=== PATIENT | male | born 2000 | race American Indian/Alaskan Native ===

== ENCOUNTER 2022-05-17 17:03 | Emergency (ER) | payer BC, MEDICAID ==
[2022-05-17 18:09] VITALS: BP 119/66
[2022-05-17] MEDS ORDERED: ONDANSETRON 4 MG/2 ML INJ IV ONE (22:00)
[2022-05-17] MEDS ORDERED: KETOROLAC 30 MG/1 ML INJ IV ONE (22:00)
[2022-05-17] MEDS ORDERED: FAMOTIDINE 20 MG/2 ML INJ IV ONE (22:00)
[2022-05-17] MEDS ORDERED: SODIUM CHLORIDE 0.9% 1000 ML 1,000 ML IV ONE (22:00)
[2022-05-17 22:42] LABS: Hematocrit 39.4 % (35.5-45.6); Hemoglobin 13.7 gm/dl (11.8-15.2); Mean Corpuscular HGB Conc 35 % (32-34); Mean Corpuscular Volume 89 fl (84-94); Platelet Count 165 K/mm3 (140-440); Red Blood Count 4.43 M/mm3 (3.65-5.03); Red Cell Distribution Width 13.5 % (13.2-15.2)
[2022-05-17 22:46] LABS: Mucus,Urine FEW /HPF
[2022-05-17 22:50] LABS: Bilirubin,Urine Negative (Negative); Blood,Urine Negative (Negative); Color,Urine Yellow (Yellow); Protein,Urine <15 mg/dL mg/dL (Negative); Urobilinogen,Urine < 2.0 mg/dL (<2.0)
[2022-05-17 22:57] LABS: Alanine Aminotransferase 42 units/L (7-56); Albumin 4.7 g/dL (3.9-5); BUN/Creatinine Ratio 9; Blood Urea Nitrogen 8 mg/dL (9-20); Calcium 9.3 mg/dL (8.4-10.2); Hemolysis Index 7
[2022-05-18 00:09] LABS: Band Neutrophils # (Manual) 0.3 K/mm3; Basophils % (Manual) 0 % (0.0-1.8); Eosinophils % (Manual) 0 % (0.0-4.3); Platelet Estimate Consistent w Auto; RBC Morphology Normal; Total Cells Counted 100
--- NOTE | 2022-05-18 00:43 | Emergency Department Report ---
ED N/V/D HPI - General Chief complaint: Upper Respiratory Infection Stated complaint: FEVER/BODY ACHE/VOMITTING/HEADACHE Source: patient Mode of arrival: Ambulatory Limitations: No Limitations - History of Present Illness Initial comments: Patient is a 21-year-old -[place] male with no past medical history who presents to the ED with complaint of acute onset persistent nausea and vomiting, diffuse body aches and pains,, low back pain, and mild dry cough for the last 3 days, worse in the last 2 days. Patient also complains of subjective chills and fever with generalized weakness and fatigue. Patient states that he has not been able to eat anything due to intractable nausea and vomiting for the last 12 hours. Patient denies dizziness, syncope, chest pain, shortness of breath, diarrhea, dysuria, urinary frequency and urgency, abdominal pain, sore throat or headache. MD complaint: nausea, vomiting, other (diffuse body aches and pain, low back pain) -: Sudden, days(s) (3) Description of Vomiting: food contents, watery, bilious Associated Abdominal Pain: No Location: diffuse Radiation: none Severity: severe Pain Scale: 7 Quality: cramping, aching, sharp Consistency: constant Improves with: none Worsens with: none Context: sick contacts Associated Symptoms: denies other symptoms, myalgias, cough, fever/chills, headaches, loss of appetite, malaise, nausea/vomiting, weakness. denies: chest pain, diaphoresis, rash, dysuria, shortness of breath, syncope - Related Data Previous Rx's Medication Instructions Recorded Last Taken Type Famotidine [Pepcid] 20 mg PO BID #30 tablet 10/14/15 Unknown Rx Promethazine [Phenergan TAB] 25 mg PO Q6HR PRN #20 tab 10/14/15 Unknown Rx Famotidine [Pepcid] 20 mg PO BID #40 tablet 05/18/22 Unknown Rx Ibuprofen [Motrin] 600 mg PO Q8H PRN #30 tablet 05/18/22 Unknown Rx Ondansetron [Zofran Odt] 4 mg PO Q8HR PRN #20 tab.rapdis 05/18/22 Unknown Rx Allergies Allergy/AdvReac Type Severity Reaction Status Date / Time No Known Allergies Allergy Unverified 10/14/15 10:31 ED Review of Systems ROS: Stated complaint: FEVER/BODY ACHE/VOMITTING/HEADACHE Other details as noted in HPI Constitutional: chills, fever, malaise, weakness Eyes: denies: eye pain, eye discharge, vision change ENT: denies: ear pain, throat pain Respiratory: cough. denies: shortness of breath, wheezing Cardiovascular: denies: chest pain, palpitations Endocrine: no symptoms reported Gastrointestinal: nausea, vomiting. denies: abdominal pain, diarrhea Genitourinary: denies: urgency, dysuria Musculoskeletal: back pain, arthralgia, myalgia. denies: joint swelling Skin: denies: rash, lesions Neurological: denies: headache, weakness, paresthesias Psychiatric: denies: anxiety, depression Hematological/Lymphatic: denies: easy bleeding, easy bruising ED Past Medical Hx - Past Medical History Previous Medical History?: No - Surgical History Additional Surgical History: Hernia repair - Social History Smoking Status: Never Smoker Substance Use Type: None - Medications Home Medications: Home Medications Medication Instructions Recorded Confirmed Last Taken Type Famotidine [Pepcid] 20 mg PO BID #30 tablet 10/14/15 Unknown Rx Promethazine [Phenergan TAB] 25 mg PO Q6HR PRN #20 tab 10/14/15 Unknown Rx Famotidine [Pepcid] 20 mg PO BID #40 tablet 05/18/22 Unknown Rx Ibuprofen [Motrin] 600 mg PO Q8H PRN #30 tablet 05/18/22 Unknown Rx Ondansetron [Zofran Odt] 4 mg PO Q8HR PRN #20 tab.rapdis 05/18/22 Unknown Rx ED Physical Exam - General Limitations: No Limitations General appearance: alert, in no apparent distress - Head Head exam: Present: atraumatic, normocephalic, normal inspection - Eye Eye exam: Present: normal appearance, PERRL, EOMI Pupils: Present: normal accommodation - ENT ENT exam: Present: normal exam, normal orophraynx, mucous membranes moist, TM's normal bilaterally, normal external ear exam - Neck Neck exam: Present: normal inspection, full ROM. Absent: tenderness - Respiratory Respiratory exam: Present: normal lung sounds bilaterally. Absent: respiratory distress, wheezes, rales, stridor, chest wall tenderness, accessory muscle use, decreased breath sounds - Cardiovascular Cardiovascular Exam: Present: regular rate, normal rhythm, normal heart sounds. Absent: systolic murmur, diastolic murmur, rubs, gallop - GI/Abdominal GI/Abdominal exam: Present: soft, normal bowel sounds. Absent: tenderness, guarding, rebound, hyperactive bowel sounds, hypoactive bowel sounds - Extremities Exam Extremities exam: Present: normal inspection, full ROM, normal capillary refill. Absent: tenderness, pedal edema, joint swelling, calf tenderness - Back Exam Back exam: Present: normal inspection, full ROM, tenderness (Palpable lumbosacral paraspinal musculoskeletal tenderness), muscle spasm, paraspinal tenderness. Absent: CVA tenderness (R), CVA tenderness (L), vertebral tenderness - Neurological Exam Neurological exam: Present: alert, oriented X3, CN II-XII intact, normal gait, reflexes normal - Psychiatric Psychiatric exam: Present: normal affect, normal mood - Skin Skin exam: Present: warm, dry, intact, normal color. Absent: rash ED Course Vital Signs 05/17/22 18:06 Temperature 99.6 F Pulse Rate 94 H Respiratory 14 Rate Blood Pressure 119/66 [Right] O2 Sat by Pulse 98 Oximetry ED Medical Decision Making - Lab Data Result diagrams: 05/17/22 22:19 05/17/22 22:19 - Medical Decision Making This is a 21-year-old -[place] male with no past medical history who presents to the ED with complaint of acute onset persistent nausea and vomiting, diffuse body aches and pains,, low back pain, and mild dry cough for the last 3 days, worse in the last 2 days. Patient also complains of subjective chills and fever with generalized weakness and fatigue. Patient states that he has not been able to eat anything due to intractable nausea and vomiting for the last 12 hours. In the ED, patient is alert and oriented x3 and is not in any distress. Patient is hemodynamically stable. Lab test results were reviewed and are all nonactionable including urinalysis. On reevaluation, patient felt better, nausea and vomiting resolved, aches and pains also resolved. Patient felt better and was discharged home on medications and advised to follow-up with his primary care physician in 5 to 7 days for reevaluation. Patient was also advised to ensure that he gets tested for COVID-19 viral infection in any of the outpatient facilities in the local area. Patient was otherwise advised return to the ED immediately if symptoms get worse. - Differential Diagnosis Influenza; COVID-19; UTI; dehydration; gastroenteritis; GERD Critical care attestation.: If time is entered above; I have spent that time in minutes in the direct care of this critically ill patient, excluding procedure time. ED Disposition Clinical Impression: Viral gastroenteritis, Nausea and vomiting in adult Disposition: 01 HOME / SELF CARE / HOMELESS Is pt being admited?: No Does the pt Need Aspirin: No Condition: Stable Instructions: Viral Gastroenteritis, Adult, [id number], Nausea and Vomiting, Adult, [id number], Viral Illness, Adult Additional Instructions: All lab test results were reviewed and are all nonactionable. Therefore take medication with food, drink plenty of fluids and follow-up with your primary care physician in 5 to 7 days for reevaluation. Consider going for a COVID-19 diagnostic test at any of the outpatient facilities. Return to the ED immediately if symptoms get worse. Prescriptions: Ibuprofen [Motrin] 600 mg PO Q8H PRN #30 tablet PRN Reason: Pain Famotidine [Pepcid] 20 mg PO BID #40 tablet Ondansetron [Zofran Odt] 4 mg PO Q8HR PRN #20 tab.rapdis PRN Reason: Nausea Referrals: HALEY MONTALVO MD [Primary Care Provider] - 7-10 days Forms: Work/School Release Form(ED), Accompanied Note Time of Disposition: 00:44 Print Language: CZECH
== END 2022-05-18 01:00 | disposition home or self-care (01) ==
LOC: ED 17:03
DX: A08.4 Viral intestinal infection, unspecified (principal); R11.2 Nausea with vomiting, unspecified; M79.18 Myalgia, other site; Z79.899 Other long term (current) drug therapy
CPT/HCPCS: 36415; 80053; 81001; 85007; 85025; 96361; 96374; 96375; 99283; J1885; J2405; J3490; J7030